=== PATIENT | male | born 1980 | race Hispanic/Latino ===

== ENCOUNTER 2017-02-08 18:19 | Emergency (ER) | payer BC ==
[2017-02-08] MEDS ORDERED: Ketorolac Tromethamine 30 MG/ML VIAL ONE (21:34)
== END 2017-02-08 21:55 | disposition home or self-care (01) ==
LOC: ERS 18:19
DX: M54.5 Low back pain (principal); G43.909 Migraine, unspecified, not intractable, without status migrainosus; F17.210 Nicotine dependence, cigarettes, uncomplicated
CPT/HCPCS: 96372; J1885

== ENCOUNTER 2017-05-08 21:11 | Emergency (ER) | payer BC ==
[2017-05-08] MEDS ORDERED: Fentanyl 100 MCG/2 ML VIAL ONE (22:24)
[2017-05-08] MEDS ORDERED: Lorazepam 2 MG/ML VIAL ONE (22:24)
[2017-05-08] MEDS ORDERED: Ketorolac Tromethamine 30 MG/ML VIAL ONE (22:24)
[2017-05-08] MEDS ORDERED: Dexamethasone 10 MG/ML VIAL ONE (22:24)
[2017-05-08] MEDS ORDERED: Metoclopramide HCl 10 MG/2 ML VIAL ONE (22:24)
== END 2017-05-08 23:00 | disposition home or self-care (01) ==
LOC: ERS 21:11
DX: M54.16 Radiculopathy, lumbar region (principal); R51 Headache; F17.210 Nicotine dependence, cigarettes, uncomplicated
CPT/HCPCS: 96365; 96375; J1100; J1885; J2060; J2765; J3010

== ENCOUNTER 2018-02-01 18:20 | Emergency (ER) | payer BC ==
[2018-02-01] MEDS ORDERED: Nitroglycerin 0.4 MG TAB (25 Tab Bottle) ONE (18:36)
[2018-02-01 18:50] LABS: Band 1 % (5-11); Eosinophils 2 % (0-10); Hemoglobin 14.9 g/dL (14.0-18.0); Lymphocytes 36 % (21-51); MDiff Complete? YES; Mean Corpuscular HGB CONC 32.7 g/dL (32.0-36.0); Mean Platelet Volume 8.9 fL (7.4-10.4); Monocytes 7 % (0-10); Neutrophil 49 % (42-75); PLT Morphology Comment Appears Adequate; Platelet Count 216 thou/uL (130-400); RBC Distribution Width 12.8 % (11.5-14.5); Reactive Lymphocytes 3 % (0-10); Red Blood Cell (RBC) Count 4.96 mill/uL (4.70-6.10)
[2018-02-01 18:56] LABS: ALT (SGPT) 36 U/L (8-55); AST (SGOT) 29 U/L (5-34); Albumin 4.3 g/dL (3.5-5.0); Alkaline Phosphatase 72 U/L (40-150); Anion Gap 14 mmol/L (10-20); BUN (Urea Nitrogen) 14 mg/dL (8.9-20.6); Bilirubin, Total 0.2 mg/dL (0.2-1.2); CK (CPK) 239 U/L (30-200); Calc. Creatinine Clearance 0 mL/min (70-130); Calcium 9.4 mg/dL (7.8-10.44); Carbon Dioxide 24 mmol/L (22-29); Chloride 107 mmol/L (98-107); Estimated GFR-MDRD 82; Globulin 2.4 g/dL (2.4-3.5); Glucose 128 mg/dL (70-105); Lipase 48 U/L (8-78); Potassium 3.8 mmol/L (3.5-5.1); Protein, Total 6.7 g/dL (6.0-8.3); Sodium 141 mmol/L (136-145)
[2018-02-01] MEDS ORDERED: Acetaminophen 500 MG TAB ONE (18:56)
[2018-02-01 18:57] LABS: CKMB 2.6 ng/mL (0-6.6); Troponin I Less than 0.010 ng/mL (< 0.028)
--- NOTE | 2018-02-01 20:12 | RAD ---
CHEST ONE VIEW: HISTORY: Chest pain. COMPARISON: Radiograph from 2013. FINDINGS: The lungs are clear. No pneumothorax or effusion. The cardiac silhouette and mediastinal contour ar e within normal limits. IMPRESSION: No acute intrathoracic abnormality. POS: [facility]
[2018-02-01] MEDS ORDERED: Ondansetron PF 4 MG/2 ML Vial ONE (20:16)
[2018-02-01] MEDS ORDERED: Mag-Al Plus 1200 MG/1200 MG/120 MG/30 ML UDCUP ONE (20:16)
[2018-02-01] MEDS ORDERED: Famotidine 20 MG TAB ONE (20:16)
[2018-02-01] MEDS ORDERED: Lidocaine Viscous Sol 2% 15 ml UD Cup ONE (20:16)
[2018-02-01] MEDS ORDERED: Nitroglycerin 2% Ointment 1 INCH/1 GM Packet ONE (20:31)
[2018-02-01 21:59] LABS: Troponin I Less than 0.010 ng/mL (< 0.028)
== END 2018-02-01 22:17 | disposition home or self-care (01) ==
LOC: SCSER 18:20
DX: R07.9 Chest pain, unspecified (principal); F17.210 Nicotine dependence, cigarettes, uncomplicated; Z79.891 Long term (current) use of opiate analgesic; Z71.6 Tobacco abuse counseling; G43.909 Migraine, unspecified, not intractable, without status migrainosus
CPT/HCPCS: 36415; 71045; 80053; 82553; 83690; 84484; 85025; 85379; 93005; 94760; 96374; 96375; 99406; J2270; J2405

== ENCOUNTER 2019-05-26 14:21 | Outpatient (CLI) | payer OTHER ==
--- NOTE | 2019-05-26 15:00 | CT ---
CT Abdomen Pelvis WO Con 05/26/2019 12:00 AM HISTORY: Bilateral groin pain started 3 weeks ago. Back pain. COMPARISON: None. Technique: Multiple contiguous axial CT images are obtained through the abdomen and pelvis without IV contrast. Coronal reformats are provided. FINDINGS: This examination is limited for the evaluation of solid organs and vascular structures due to the lac k of intravenous contrast. Lower Chest: Lung bases are clear. Abdomen: Liver: Decreased attenuation suggesting diffuse fatty infiltration with fatty sparing adjacent to the gallbladder. Gallbladder: Decompressed. Pancreas: Grossly normal nonenhanced CT appearance. Spleen: Grossly normal nonenhanced CT appearance. Adrenals: Grossly normal nonenhanced CT appearance. Kidneys: No renal calculi are visualized, and there is no evidence of hydronephrosis. Ureters: No ureteral calculus is seen.. Pelvis: Urinary bladder: within normal limits. Reproductive Organs: No pelvic masses. Lymph Nodes: No enlarged lymph nodes. Bowel: Normal caliber. Appendix: The appendix is normal in caliber. Peritoneum: No free fluid, free air, or fluid collection. Retroperitoneum: within normal limits. Vessels: Minimal vascular calcifications are seen in the abdominal aorta.. Abdominal Wall: Small fat-containing umbilical hernia is seen. Bones: Degenerative changes are seen in the lower thoracic spine. IMPRESSION: 1. No renal or ureteral calculi are seen bilaterally. 2. Fatty infiltration of the liver. 3. Small fat-containing umbilical hernia.
== END 2019-05-26 14:22 | disposition home or self-care (01) ==
LOC: BICCT 14:21 → EDSTATUS 15:00
PROVIDERS: ATTEND Family Medicine
DX: R10.9 Unspecified abdominal pain (principal); K76.0 Fatty (change of) liver, not elsewhere classified; K42.9 Umbilical hernia without obstruction or gangrene
CPT/HCPCS: 74176

== ENCOUNTER 2020-10-04 08:07 | Outpatient (CLI) | payer OTHER | END 2020-10-04 08:08 | disposition home or self-care (01) | LOC: CT 08:07 | PROVIDERS: ATTEND Family Medicine | DX: N20.0 Calculus of kidney (principal); N40.0 Benign prostatic hyperplasia without lower urinary tract symptoms; K57.30 Diverticulosis of large intestine without perforation or abscess without bleeding; K76.0 Fatty (change of) liver, not elsewhere classified; K38.1 Appendicular concretions | CPT/HCPCS: 74176 ==

== ENCOUNTER 2024-01-02 16:13 | Emergency (ER) | payer OTHER ==
[2024-01-02] MEDS ORDERED: Ketorolac Tromethamine 30 MG (1 mL) VIAL ONE (17:59)
[2024-01-02 18:13] LABS: #Basophils 0.05 10x3/uL (0.0-0.2); %Basophils 0.5 % (0.0-1.0); %Eosinophils 1.6 % (0.0-10.0); %Lymphocytes 29.8 % (21.0-51.0); %Monocytes 9.9 % (0.0-10.0); %Neutrophils 57.9 % (42.0-75.0); Hemoglobin 14.9 g/dL (14.0-18.0); Mean Corpuscular HGB CONC 34.7 g/dL (32.0-36.0); Mean Corpuscular Hemoglobin 32.3 pg (27.0-31.0); Mean Corpuscular Volume 93.3 fL (78.0-98.0); Mean Platelet Volume 10.3 fL (7.4-10.4); Platelet Count 275 10x3/uL (130-400); RBC Distribution Width 13.9 % (11.5-14.5); Red Blood Cell (RBC) Count 4.61 mill/uL (4.70-6.10)
[2024-01-02 18:41] LABS: ALT (SGPT) 21 U/L (8-55); AST (SGOT) 21 U/L (5-34); Albumin 3.8 g/dL (3.5-5.0); Alkaline Phosphatase 67 U/L (40-110); Anion Gap 13 mmol/L (10-20); BUN (Urea Nitrogen) 18 mg/dL (8.9-20.6); Bilirubin, Total 0.2 mg/dL (0.2-1.2); Calc. Creatinine Clearance 0 mL/min (70-130); Calcium 9.2 mg/dL (7.8-10.44); Carbon Dioxide 23 mmol/L (22-29); Chloride 108 mmol/L (98-107); Estimated GFR 99; Globulin 3.1 g/dL (2.4-3.5); Glucose 96 mg/dL (70-105); Lipase 37 U/L (8-78); Potassium 3.9 mmol/L (3.5-5.1); Protein, Total 6.9 g/dL (6.0-8.3); Sodium 140 mmol/L (136-145)
[2024-01-02 18:44] LABS: Troponin I Less than 0.010 ng/mL (< 0.028)
== END 2024-01-02 20:00 | disposition home or self-care (01) ==
LOC: ERS 16:13
DX: R10.11 Right upper quadrant pain (principal); R10.811 Right upper quadrant abdominal tenderness; R10.816 Epigastric abdominal tenderness; F17.210 Nicotine dependence, cigarettes, uncomplicated
CPT/HCPCS: 76705; 80053; 83690; 84484; 85025; 93005; 96374; J1885